=== PATIENT | female | born 1940 | race Caucasian/White ===

== ENCOUNTER 2017-10-30 21:34 | Inpatient (IN) | payer OTHER ==
--- NOTE | 2017-10-30 22:36 | HP ---
CIWA Score - CIWA Score Nausea/Vomitin Muscle Tremors: 2 Anxiety: 3 Agitation: 3 Paroxysmal Sweats: No Perspiration Orientation: 1-Uncertain about Date Tacttile Disturbances: 0-None Auditory Disturbances: 0-None Visual Disturbances: 1-Very Mild Sensitivity Headache: 0-None Present CIWA-Ar Total Score: 12 Admission ROS BHS - HPI Chief Complaint: alcohol withdrawal sx Allergies/Adverse Reactions: Allergies Allergy/AdvReac Type Severity Reaction Status Date / Time Penicillins Allergy Severe Hives Verified 10/30/17 22:00 History of Present Illness: Patient is a 77 female with hx of alcohol dependence presents today for detox. Patient s/p fall fall today, reports she fell down the steps of her home without loosing level of consciousness, was evaluate at [facility]. PMHX: HTN, [place], hypercholesterolemia, anxiety, depression. Denies suicidal / homicidal ideation or suicide attempts. Reports prior detox May 2017 at [facility]. Longest period of sobriety 5 months. Exam Limitations: No Limitations - Ebola screening Have you traveled outside of the country in the last 21 days: No (N) Have you had contact with anyone from an Ebola affected area: No Do you have a fever: No - Review of Systems Constitutional: Chills, Loss of Appetite, Weakness, Unintentional Wgt. Loss (5 lbs) EENT: reports: Hearing Loss ([place] b/t) Respiratory: reports: SOB with Exertion (going up steps) Cardiac: reports: No Symptoms Reported GI: reports: Nausea, Poor Fluid Intake : reports: No Symptoms Reported Musculoskeletal: reports: Joint Pain (related to recent fall), Muscle Pain Neuro: reports: Tremors Endocrine: reports: Increased Thirst Hematology: reports: No Symptoms Reported Psychiatric: reports: Orientated x3, Depressed Other Systems: Reviewed and Negative Patient History - Patient Medical History Hx Anemia: No Hx Asthma: No Hx Chronic Obstructive Pulmonary Disease (COPD): No Hx Cancer: No Hx Cardiac Disorders: No Hx Congestive Heart Failure: No Hx Hypertension: Yes Hx Hypercholesterolemia: Yes Hx Pacemaker: No HX Cerebrovascular Accident: No Hx Seizures: No Hx Dementia: No Hx Diabetes: No Hx Gastrointestinal Disorders: No Hx Liver Disease: No Hx Genitourinary Disorders: No Hx Sexually Transmitted Disorders: No Hx Renal Disease (ESRD): No Hx Thyroid Disease: No Hx Human Immunodeficiency Virus (HIV): No Hx Hepatitis C: No Hx Depression: Yes Hx Suicide Attempt: No Hx Bipolar Disorder: No Hx Schizophrenia: No - Patient Surgical History Past Surgical History: No Hx Neurologic Surgery: No Hx Cataract Extraction: No Hx Cardiac Surgery: No Hx Lung Surgery: No Hx Breast Surgery: No Hx Breast Biopsy: No Hx Abdominal Surgery: No Hx Appendectomy: No Hx Cholecystectomy: No Hx Genitourinary Surgery: No Hx Section: No Hx Orthopedic Surgery: No Hx Hysterectomy: No Anesthesia Reaction: No - PPD History Previous Implant?: Yes Documented Results: Positive w/o proof PPD to be Administered?: Yes - Reproductive History Patient is a Female of Child Bearing Age (11 -55 yrs old): No - Smoking Cessation Smoking history: Former smoker Have you smoked in the past 12 months: No Hx Chewing Tobacco Use: No Initiated information on smoking cessation: No - Substance & Tx. History Hx Alcohol Use: Yes Hx Substance Use: Yes Substance Use Type: Alcohol Hx Substance Use Treatment: Yes (May 2017 at [facility]) - Substances Abused Alcohol Route: Oral Frequency: Daily Amount used: beer- 1 six pack Age of first use: 41 Date of Last Use: 10/30/17 Family Disease History - Family Disease History Family Disease History: Other: Father (, lung cancer), Mother (, alcoholism ) Admission Physical Exam S - Vital Signs Vital Signs: Vital Signs - 24 hr 10/30/17 22:18 Temperature 97.7 F Pulse Rate 78 Respiratory 18 Rate Blood Pressure 147/87 - Physical General Appearance: Yes: Disheveled, Alcohol on Breath, Thin, Anxious HEENTM: Yes: EOMI, Normal ENT Inspection, Normocephalic, Normal Voice, JORGE, Pharynx Normal, Tm's normal, Hearing Decreased (bilateral) Respiratory: Yes: Chest Non-Tender, Lungs Clear, Normal Breath Sounds, No Respiratory Distress, No Accessory Muscle Use Neck: Yes: Within Normal Limits Breast: Yes: Breast Exam Deferred Cardiology: Yes: Regular Rhythm, Regular Rate Abdominal: Yes: Normal Bowel Sounds, Non Tender, Flat, Soft Genitourinary: Yes: Within Normal Limits Back: Yes: Normal Inspection Musculoskeletal: Yes: full range of Motion, Gait Steady, Pelvis Stable Extremities: Yes: Normal Capillary Refill, Normal Inspection, Normal Range of Motion, Non-Tender, Erythema (both forearms result of recent fall) Neurological: 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: 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 NML intact, Fully Oriented, Alert, Motor Strength 5/5, Depressed Affect Integumentary: Yes: Normal Color, Warm, Moist Lymphatic: Yes: Within Normal Limits - Diagnostic (1) Alcohol dependence with withdrawal Current Visit: Yes Status: Acute Qualifiers: Complication of substance-induced condition: uncomplicated Qualified Code(s ): F10.230 - Alcohol dependence with withdrawal, uncomplicated (2) Hypertension Current Visit: Yes Status: Chronic Qualifiers: Hypertension type: essential hypertension Qualified Code(s): I10 - Essential (primary) hypertension (3) Fall Current Visit: Yes Status: Acute Qualifiers: Encounter type: subsequent encounter Qualified Code(s): W19.XXXD - Unspecified fall, subsequent encounter (4) Hyperlipidemia Current Visit: Yes Status: Acute Qualifiers: Hyperlipidemia type: unspecified Qualified Code(s): E78.5 - Hyperlipidemia , unspecified (5) Anxious mood Current Visit: Yes Status: Acute (6) [place] (hard of hearing) Current Visit: Yes Status: Chronic Qualifiers: Hearing loss type: unspecified Laterality: bilateral Qualified Code(s): H91.93 - Unspecified hearing loss, bilateral Cleared for Admission BHS - Detox or Rehab [facility] Level of Care: Medically Managed Detox Regimen/Protocol: Librium S Breath Alcohol Content Breath Alcohol Content: 0.079 Urine Pregancy Test - Result Urine Test Results: Negative- NO Line Present Urine Drug Screen - Results Drug Screen Negative: Yes
[2017-10-30] MEDS ORDERED: chlordiazePOXIDE HCL 25 MG CAPSULE PO PRN (22:45)
[2017-10-30] MEDS ORDERED: chlordiazePOXIDE HCL 25 MG CAPSULE PO ONE (22:45)
[2017-10-30] MEDS ORDERED: IBUPROFEN 400 MG TABLET (FP) PO PRN (22:45)
[2017-10-30] MEDS ORDERED: MAG HYDROX/AL HYDROX/SIMETH 30 ML UNIT-DOSE CUP PO PRN (22:45)
[2017-10-30] MEDS ORDERED: MAGNESIUM HYDROX 2400MG/30ML ORAL SUSPENSION 30 ML CUP PO PRN (22:45)
[2017-10-30] MEDS ORDERED: ACETAMINOPHEN 325 MG TABLET (FP) PO PRN (22:45)
[2017-10-30] MEDS ORDERED: MAGNESIUM CITRATE 300 ML BOTTLE PO PRN (22:45)
[2017-10-30] MEDS ORDERED: guaiFENesin/D-METHORPHAN HB 10 ML UNIT-DOSE CUPS PO PRN (22:45)
[2017-10-30] MEDS ORDERED: LOPERAMIDE HCL 2 MG CAPSULE PO PRN (22:45)
[2017-10-30] MEDS ORDERED: P-EPHED 60MG/TRIPROLIDI 2.5MG TABLET PO PRN (22:45)
[2017-10-30] MEDS ORDERED: hydrOXYzine PAMOATE 25 MG CAPSULE (FP) PO PRN (22:45)
[2017-10-30] MEDS ORDERED: MENTHOL/PHENOL 1 EACH UD MM PRN (22:45)
[2017-10-31] MEDS: chlordiazePOXIDE HCL 25 MG CAPSULE PO SCH ×5 (00:36→22:10)
[2017-10-31 09:54] LABS: HEMATOCRIT 34.6 % (32.4-45.2); HEMOGLOBIN 11.6 GM/dL (10.7-15.3); MCH 31.2 pg (25.7-33.7); MCHC 33.6 g/dl (32.0-36.0); MEAN CELL VOLUME 92.8 fl (80-96); MEAN PLT VOLUME 8.1 fl (7.5-11.1); PLATELET COUNT 210 K/MM3 (134-434); RBC 3.72 M/mm3 (3.60-5.2); RDW 14.1 % (11.6-15.6); WHITE BLOOD COUNT 4.8 K/mm3 (4.0-10.0)
[2017-10-31] MEDS: PRENATAL VITAMINS W/ FOLIC ACID TABLET (FP) PO SCH (10:29)
[2017-10-31] MEDS: amLODIPine BESYLATE 5 MG TABLET (FP) PO SCH (10:29)
[2017-10-31 10:49] LABS: ALBUMIN 3.7 g/dl (3.4-5.0); ANION GAP 5 (8-16); BILIRUBIN,TOTAL 0.5 mg/dL (0.2-1.0); BLOOD UREA NITROGEN 7 mg/dL (7-18); CALCIUM 8.7 mg/dL (8.5-10.1); CHLORIDE 104 mmol/L (98-107); CO2 28 mmol/L (21-32); CREATININE 0.7 mg/dL (0.55-1.02); GLUCOSE,RANDOM 78 mg/dL (74-106); POTASSIUM 4.2 mmol/L (3.5-5.1); SGOT/AST 22 U/L (15-37); SGPT/ALT 20 U/L (12-78); SODIUM 137 mmol/L (136-145); TOT PROT 6.7 g/dl (6.4-8.2)
[2017-10-31 10:50] LABS: ALK PHOS 52 U/L (45-117)
--- NOTE | 2017-10-31 11:44 | PN ---
S CIWA - CIWA Score Nausea/Vomitin Muscle Tremors: 3 Anxiety: 3 Agitation: 2 Paroxysmal Sweats: 1-Minimal Palms Moist Orientation: 0-Oriented Tacttile Disturbances: 1-Very Mild Itch/Numbness Auditory Disturbances: 1-Very Mild Visual Disturbances: 0-None Headache: 2-Mild CIWA-Ar Total Score: 16 BHS Progress Note (SOAP) Subjective: ALERT,IRRITABLE,ANXIOUS,INTERRUPTED SLEEP,TREMOR Objective: 10/31/17 11:41 Vital Signs Temperature 97.3 F L 10/31/17 10:15 Pulse Rate 87 10/31/17 10:15 Respiratory Rate 18 10/31/17 10:15 Blood Pressure 122/67 10/31/17 10:15 O2 Sat by Pulse Oximetry (%) EKG NORMAL ECG PROLONG QT 434/468 NO CHEST PAIN,NO SOB,NO DIZZINESS Laboratory Last Values WBC 4.8 K/mm3 (4.0-10.0) 10/31/17 07:30 RBC 3.72 M/mm3 (3.60-5.2) 10/31/17 07:30 Hgb 11.6 GM/dL (10.7-15.3) 10/31/17 07:30 Hct 34.6 % (32.4-45.2) 10/31/17 07:30 MCV 92.8 fl (80-96) 10/31/17 07:30 MCH 31.2 pg (25.7-33.7) 10/31/17 07:30 MCHC 33.6 g/dl (32.0-36.0) 10/31/17 07:30 RDW 14.1 % (11.6-15.6) 10/31/17 07:30 Plt Count 210 K/MM3 (134-434) 10/31/17 07:30 MPV 8.1 fl (7.5-11.1) 10/31/17 07:30 Sodium 137 mmol/L (136-145) 10/31/17 07:30 Potassium 4.2 mmol/L (3.5-5.1) 10/31/17 07:30 Chloride 104 mmol/L (98-107) 10/31/17 07:30 Carbon Dioxide 28 mmol/L (21-32) 10/31/17 07:30 Anion Gap 5 (8-16) L 10/31/17 07:30 BUN 7 mg/dL (7-18) 10/31/17 07:30 Creatinine 0.7 mg/dL (0.55-1.02) 10/31/17 07:30 Creat Clearance w eGFR > 60 (>60) 10/31/17 07:30 Random Glucose 78 mg/dL (74-106) 10/31/17 07:30 Calcium 8.7 mg/dL (8.5-10.1) 10/31/17 07:30 Total Bilirubin 0.5 mg/dL (0.2-1.0) 10/31/17 07:30 AST 22 U/L (15-37) 10/31/17 07:30 ALT 20 U/L (12-78) 10/31/17 07:30 Alkaline Phosphatase 52 U/L (45-117) 10/31/17 07:30 Total Protein 6.7 g/dl (6.4-8.2) 10/31/17 07:30 Albumin 3.7 g/dl (3.4-5.0) 10/31/17 07:30 10/31/17 11:43 RPR PENDING Assessment: 10/31/17 11:43 WITHDRAWAL SYMPTOM Plan: CONTINUE DETOX,FALL PRECAUTION
--- NOTE | 2017-10-31 12:40 | CONSULT ---
[facility] Psychiatric Consult - Data Date of interview: 10/31/17 Admission source: [facility] Identifying data: Patient is a 77 year old female, mother of three, receiving SSI, and resides in a two bedroom apartment. This is patient's first admission to detox at [facility]. Patient admitted to for alcohol dependence. Substance Abuse History: Following information confirmed with Ms. Bello: Smoking Cessation. Smoking history: Former smoker. Have you smoked in the past 12 months: No. Hx Chewing Tobacco Use: No. Initiated information on smoking cessation: No. - Substance & Tx. History. Hx Alcohol Use: Yes. Hx Substance Use: Yes. Substance Use Type: Alcohol. Hx [facility] - Substances Abused. Alcohol. Route: Oral. Frequency: Daily. Amount used: beer- 1 six pack. Age of first use: 41. Date of Last Use: 10/30/17 Medical History: hypertension, hypercholesterolemia Psychiatric History: Patient denies h/o psychiatric hospitalizations, outpatient care and suicide attempts. Pt. reports taking lexapro 10mg for several years. States the lexapro is prescribed by her PCP and is effective in managing her anxiety. Pharmacy claims reviewed. Physical/Sexual Abuse/Trauma History: Denies. Mental Status Exam - Mental Status Exam Alert and Oriented to: Time, Place, Person Cognitive Function: Fair Patient Appearance: Well Groomed Mood: Hopeful Affect: Mood Congruent Patient Behavior: Appropriate, Cooperative Speech Pattern: Clear, Appropriate Voice Loudness: Normal Thought Process: Intact, Goal Oriented Thought Disorder: Not Present Hallucinations: Denies Suicidal Ideation: Denies Homicidal Ideation: Denies Insight/Judgement: Poor Sleep: Fair Appetite: Fair Muscle strength/Tone: Normal Gait/Station: Normal Psychiatric Findings - Problem List ([place] 1, 2,3) (1) Alcohol dependence with withdrawal Current Visit: Yes Status: Acute Qualifiers: Complication of substance-induced condition: uncomplicated Qualified Code(s ): F10.230 - Alcohol dependence with withdrawal, uncomplicated (2) Anxiety disorder Current Visit: Yes Status: Suspected - Initial Treatment Plan Initial Treatment Plan: Psychoeducation provided. Detoxification in progress. Lexapro 10mg PO daily ordered.
[2017-10-31] MEDS: THIAMINE HCL 100 MG TABLET (FP) PO SCH (22:10)
[2017-10-31] MEDS: ROSUVASTATIN CA 10 MG TABLET (FP) PO SCH (22:10)
[2017-11-01] MEDS: chlordiazePOXIDE HCL 25 MG CAPSULE PO SCH ×3 (05:30→17:30)
--- NOTE | 2017-11-01 09:40 | PN ---
S CIWA - CIWA Score Nausea/Vomitin Muscle Tremors: 3 Anxiety: 1-Mildly Anxious Agitation: 1-Slight > Activity Paroxysmal Sweats: 3 Orientation: 0-Oriented Tacttile Disturbances: 1-Very Mild Itch/Numbness Auditory Disturbances: 0-None Visual Disturbances: 0-None Headache: 1-Very Mild CIWA-Ar Total Score: 12 S Progress Note (SOAP) Subjective: Irritable, anxious, sleep interruption Objective: 11/01/17 09:39 Vital Signs - 8 hr 11/01/17 11/01/17 11/01/17 03:30 06:09 06:30 Temperature 97.2 F L Pulse Rate 60 Respiratory 18 16 16 Rate Blood Pressure 100/53 Laboratory Last Values WBC 4.8 K/mm3 (4.0-10.0) 10/31/17 07:30 RBC 3.72 M/mm3 (3.60-5.2) 10/31/17 07:30 Hgb 11.6 GM/dL (10.7-15.3) 10/31/17 07:30 Hct 34.6 % (32.4-45.2) 10/31/17 07:30 MCV 92.8 fl (80-96) 10/31/17 07:30 MCH 31.2 pg (25.7-33.7) 10/31/17 07:30 MCHC 33.6 g/dl (32.0-36.0) 10/31/17 07:30 RDW 14.1 % (11.6-15.6) 10/31/17 07:30 Plt Count 210 K/MM3 (134-434) 10/31/17 07:30 MPV 8.1 fl (7.5-11.1) 10/31/17 07:30 Sodium 137 mmol/L (136-145) 10/31/17 07:30 Potassium 4.2 mmol/L (3.5-5.1) 10/31/17 07:30 Chloride 104 mmol/L (98-107) 10/31/17 07:30 Carbon Dioxide 28 mmol/L (21-32) 10/31/17 07:30 Anion Gap 5 (8-16) L 10/31/17 07:30 BUN 7 mg/dL (7-18) 10/31/17 07:30 Creatinine 0.7 mg/dL (0.55-1.02) 10/31/17 07:30 Creat Clearance w eGFR > 60 (>60) 10/31/17 07:30 Random Glucose 78 mg/dL (74-106) 10/31/17 07:30 Calcium 8.7 mg/dL (8.5-10.1) 10/31/17 07:30 Total Bilirubin 0.5 mg/dL (0.2-1.0) 10/31/17 07:30 AST 22 U/L (15-37) 10/31/17 07:30 ALT 20 U/L (12-78) 10/31/17 07:30 Alkaline Phosphatase 52 U/L (45-117) 10/31/17 07:30 Total Protein 6.7 g/dl (6.4-8.2) 10/31/17 07:30 Albumin 3.7 g/dl (3.4-5.0) 10/31/17 07:30 RPR Titer Nonreactive (NONREACTIVE) 10/31/17 07:30 Labs noted Assessment: 11/01/17 09:39 Withdrawal sx Plan: Continue detox
[2017-11-01] MEDS: PRENATAL VITAMINS W/ FOLIC ACID TABLET (FP) PO SCH (10:18)
[2017-11-01] MEDS: ESCITALOPRAM OXALATE 10 MG TABLET (FP) PO SCH (10:18)
[2017-11-01] MEDS: amLODIPine BESYLATE 5 MG TABLET (FP) PO SCH (10:18)
[2017-11-01 10:40] LABS: URINE APPEARANCE CLEAR; URINE BILIRUBIN NEGATIVE (<2.0 mg/dL); URINE COLOR LTYELLOW; URINE GLUCOSE (UA) NEGATIVE (NEGATIVE); URINE KETONE NEGATIVE (NEGATIVE); URINE NITRITE NEGATIVE (NEGATIVE); URINE PROTEIN NEGATIVE (NEGATIVE); URINE UROBILINOGEN NEGATIVE mg/dL (0.2-1.0)
[2017-11-01 10:41] LABS: URINE LEUK ESTERASE 2+ (NEGATIVE)
[2017-11-01 10:43] LABS: EPI CELLS RARE /HPF (FEW)
--- NOTE | 2017-11-01 14:40 | EKG ---
Test Reason : Blood Pressure : / mmHG Vent. Rate : 070 BPM Atrial Rate : 070 BPM P-R Int : 176 ms QRS Dur : 090 ms QT Int : 434 ms P-R-T Axes : 065 036 043 degrees QTc Int : 468 ms NORMAL SINUS RHYTHM NORMAL ECG NO PREVIOUS ECGS AVAILABLE Confirmed by MD Santos, Nate ([id number]) on 11/01/2017 2:40:25 PM Referred By: Confirmed By:Nate Graham MD
[2017-11-01] MEDS: chlordiazePOXIDE 5 MG CAPSULE PO SCH (22:05)
[2017-11-01] MEDS: ROSUVASTATIN CA 10 MG TABLET (FP) PO SCH (22:05)
[2017-11-01] MEDS: THIAMINE HCL 100 MG TABLET (FP) PO SCH (22:06)
[2017-11-02] MEDS: chlordiazePOXIDE 5 MG CAPSULE PO SCH ×3 (05:10→18:00)
[2017-11-02] MEDS: ESCITALOPRAM OXALATE 10 MG TABLET (FP) PO SCH (10:10)
[2017-11-02] MEDS: amLODIPine BESYLATE 5 MG TABLET (FP) PO SCH (10:10)
[2017-11-02] MEDS: PRENATAL VITAMINS W/ FOLIC ACID TABLET (FP) PO SCH (10:10)
--- NOTE | 2017-11-02 12:59 | PN ---
BHS Progress Note (SOAP) Subjective: Anxious, sweating Objective: 11/02/17 12:52 Last Vital Signs Temp Pulse Resp BP Pulse Ox 97.7 F 64 16 122/69 11/02/17 09:58 11/02/17 09:58 11/02/17 09:58 11/02/17 09:58 Laboratory Tests 10/31/17 10/31/17 10/31/17 07:30 07:30 07:30 WBC 4.8 RBC 3.72 Hgb 11.6 Hct 34.6 MCV 92.8 MCH 31.2 MCHC 33.6 RDW 14.1 Plt Count 210 MPV 8.1 Sodium 137 Potassium 4.2 Chloride 104 Carbon Dioxide 28 Anion Gap 5 L BUN 7 Creatinine 0.7 Creat Clearance w eGFR > 60 Random Glucose 78 Calcium 8.7 Total Bilirubin 0.5 AST 22 ALT 20 Alkaline Phosphatase 52 Total Protein 6.7 Albumin 3.7 Urine Color Urine Appearance Urine pH Ur Specific [place] Urine Protein Urine Glucose (UA) Urine Ketones Urine Blood Urine Nitrite Urine Bilirubin Urine Urobilinogen Ur Leukocyte Esterase Urine WBC (Auto) Urine RBC (Auto) Ur Epithelial Cells RPR Titer Nonreactive 11/01/17 08:52 WBC RBC Hgb Hct MCV MCH MCHC RDW Plt Count MPV Sodium Potassium Chloride Carbon Dioxide Anion Gap BUN Creatinine Creat Clearance w eGFR Random Glucose Calcium Total Bilirubin AST ALT Alkaline Phosphatase Total Protein Albumin Urine Color Ltyellow Urine Appearance Clear Urine pH 6.0 Ur Specific [place] 1.012 Urine Protein Negative Urine Glucose (UA) Negative Urine Ketones Negative Urine Blood Negative Urine Nitrite Negative Urine Bilirubin Negative Urine Urobilinogen Negative Ur Leukocyte Esterase 2+ H Urine WBC (Auto) 12 Urine RBC (Auto) <1 Ur Epithelial Cells Rare RPR Titer Labs reviewed Assessment: 11/02/17 12:53 Withdrawal symptoms Plan: Continue detox Encouraged PO hydration (water)
[2017-11-02] MEDS: THIAMINE HCL 100 MG TABLET (FP) PO SCH (22:05)
[2017-11-02] MEDS: chlordiazePOXIDE HCL 10 MG CAPSULE PO SCH (22:05)
[2017-11-02] MEDS: ROSUVASTATIN CA 10 MG TABLET (FP) PO SCH (22:05)
[2017-11-03] MEDS: chlordiazePOXIDE HCL 10 MG CAPSULE PO SCH ×2 (05:10→10:09)
--- NOTE | 2017-11-03 07:51 | PN ---
S Progress Note (SOAP) Subjective: ALERT,NO COMPLAINT Objective: 11/03/17 07:50 Vital Signs Temperature 97.3 F L 11/03/17 06:20 Pulse Rate 68 11/03/17 06:20 Respiratory Rate 16 11/03/17 06:30 Blood Pressure 120/64 11/03/17 06:20 O2 Sat by Pulse Oximetry (%) Assessment: 11/03/17 07:50 DETOX COMPLETED,NO WITHDRAWAL SYMPTOM Plan: DISCHARGE TODAY,FOLLOW UP WITH AFTER CARE PROGRAM ARRANGEMENT
--- NOTE | 2017-11-03 07:57 | DS ---
[facility] Detox Discharge Summary Admission Date: 10/30/17 Discharge Date: 11/03/17 - History Present History: Alcohol Dependence Additional Comments: FOLLOW UP WITH AFTER CARE PROGRAM ARRANGEMENT Pertinent Past History: HYPERTENSION HARD OF HEARING [place] HYPERLIPIDEMIA - Physical Exam Results Vital Signs: Vital Signs Temperature 97.3 F L 11/03/17 06:20 Pulse Rate 68 11/03/17 06:20 Respiratory Rate 16 11/03/17 06:30 Blood Pressure 120/64 11/03/17 06:20 O2 Sat by Pulse Oximetry (%) Pertinent Admission Physical Exam Findings: WITHDRAWAL SIGNS AND SYMPTOM Vital Signs Temperature 97.3 F L 11/03/17 06:20 Pulse Rate 68 11/03/17 06:20 Respiratory Rate 16 11/03/17 06:30 Blood Pressure 120/64 11/03/17 06:20 O2 Sat by Pulse Oximetry (%) Laboratory Last Values WBC 4.8 K/mm3 (4.0-10.0) 10/31/17 07:30 RBC 3.72 M/mm3 (3.60-5.2) 10/31/17 07:30 Hgb 11.6 GM/dL (10.7-15.3) 10/31/17 07:30 Hct 34.6 % (32.4-45.2) 10/31/17 07:30 MCV 92.8 fl (80-96) 10/31/17 07:30 MCH 31.2 pg (25.7-33.7) 10/31/17 07:30 MCHC 33.6 g/dl (32.0-36.0) 10/31/17 07:30 RDW 14.1 % (11.6-15.6) 10/31/17 07:30 Plt Count 210 K/MM3 (134-434) 10/31/17 07:30 MPV 8.1 fl (7.5-11.1) 10/31/17 07:30 Sodium 137 mmol/L (136-145) 10/31/17 07:30 Potassium 4.2 mmol/L (3.5-5.1) 10/31/17 07:30 Chloride 104 mmol/L (98-107) 10/31/17 07:30 Carbon Dioxide 28 mmol/L (21-32) 10/31/17 07:30 Anion Gap 5 (8-16) L 10/31/17 07:30 BUN 7 mg/dL (7-18) 10/31/17 07:30 Creatinine 0.7 mg/dL (0.55-1.02) 10/31/17 07:30 Creat Clearance w eGFR > 60 (>60) 10/31/17 07:30 Random Glucose 78 mg/dL (74-106) 10/31/17 07:30 Calcium 8.7 mg/dL (8.5-10.1) 10/31/17 07:30 Total Bilirubin 0.5 mg/dL (0.2-1.0) 10/31/17 07:30 AST 22 U/L (15-37) 10/31/17 07:30 ALT 20 U/L (12-78) 10/31/17 07:30 Alkaline Phosphatase 52 U/L (45-117) 10/31/17 07:30 Total Protein 6.7 g/dl (6.4-8.2) 10/31/17 07:30 Albumin 3.7 g/dl (3.4-5.0) 10/31/17 07:30 Urine Color Ltyellow 11/01/17 08:52 Urine Appearance Clear 11/01/17 08:52 Urine pH 6.0 (5.0-8.0) 11/01/17 08:52 Ur Specific [place] 1.012 (1.001-1.035) 11/01/17 08:52 Urine Protein Negative (NEGATIVE) 11/01/17 08:52 Urine Glucose (UA) Negative (NEGATIVE) 11/01/17 08:52 Urine Ketones Negative (NEGATIVE) 11/01/17 08:52 Urine Blood Negative (NEGATIVE) 11/01/17 08:52 Urine Nitrite Negative (NEGATIVE) 11/01/17 08:52 Urine Bilirubin Negative (<2.0 mg/dL) 11/01/17 08:52 Urine Urobilinogen Negative mg/dL (0.2-1.0) 11/01/17 08:52 Ur Leukocyte Esterase 2+ (NEGATIVE) H 11/01/17 08:52 Urine WBC (Auto) 12 /hpf (3-5) 11/01/17 08:52 Urine RBC (Auto) <1 /hpf (0-3) 11/01/17 08:52 Ur Epithelial Cells Rare /HPF (FEW) 11/01/17 08:52 RPR Titer Nonreactive (NONREACTIVE) 10/31/17 07:30 - Treatment Patient has Accepted a Rehab Referral to: DECLINED - Medication Discharge Medications: Ambulatory Orders Amlodipine Besylate [Amlodipine Besylate] 5 mg PO DAILY 10/30/17 Rosuvastatin Calcium [Rosuvastatin Calcium] 10 mg PO DAILY 10/30/17 Escitalopram Oxalate [Lexapro -] 10 mg PO DAILY 10/31/17 - Diagnosis (1) Alcohol dependence with withdrawal Current Visit: Yes Status: Acute Qualifiers: Complication of substance-induced condition: uncomplicated Qualified Code(s ): F10.230 - Alcohol dependence with withdrawal, uncomplicated (2) Hyperlipidemia Current Visit: Yes Status: Chronic Qualifiers: Hyperlipidemia type: unspecified Qualified Code(s): E78.5 - Hyperlipidemia , unspecified (3) [place] (hard of hearing) Current Visit: Yes Status: Chronic Qualifiers: Hearing loss type: unspecified Laterality: bilateral Qualified Code(s): H91.93 - Unspecified hearing loss, bilateral (4) Hypertension Current Visit: Yes Status: Chronic Qualifiers: Hypertension type: essential hypertension Qualified Code(s): I10 - Essential (primary) hypertension (5) Frequent falls Current Visit: Yes Status: Acute - AMA Did Patient Leave Against Medical Advice: No
--- NOTE | 2017-11-03 08:03 | PN ---
[facility] Progress Note Note: PATIENT HAS ALL MEDICATION AT HOME INCLUDING BABY ASA 81 MGS PO DAILY
[2017-11-03] MEDS: amLODIPine BESYLATE 5 MG TABLET (FP) PO SCH (10:07)
[2017-11-03] MEDS: ASPIRIN COATED 81 MG TABLET.EC PO SCH (10:07)
[2017-11-03] MEDS: ESCITALOPRAM OXALATE 10 MG TABLET (FP) PO SCH (10:07)
[2017-11-03] MEDS: PRENATAL VITAMINS W/ FOLIC ACID TABLET (FP) PO SCH (10:07)
[2017-11-03 12:11] VITALS: BMI 21.8
--- NOTE | 2017-11-03 12:36 | PN ---
S Progress Note Note: patient would like to continue further level of care in rehab
--- NOTE | 2017-11-03 14:22 | HP ---
Psychiatrist Admission - Data Date of interview: 11/03/17 Admission source: [address] [place] [address] Identifying data: This is the first admission to [address] [place] [address] for this 77 years old cacasian female mother of 3 , domiciled,supported by [facility]. Medical History: Hyperlipidemia,HTN. Psychiatric History: patient reports some depression,episodes of frustration at time since she feels bored unoccupied.No previous psychiatric interventions.Patient is wiling to take medications for anxiety,frustration, irritabiity a needed. Physical/Sexual Abuse/Trauma History: denies Vital Signs: Vital Signs - 24 hr 11/02/17 11/02/17 11/03/17 17:47 22:08 00:30 Temperature 97.7 F 98.1 F Pulse Rate 74 75 Respiratory 18 20 18 Rate Blood Pressure 127/69 119/72 11/03/17 11/03/17 11/03/17 03:30 06:20 06:30 Temperature 97.3 F L Pulse Rate 68 Respiratory 16 18 16 Rate Blood Pressure 120/64 11/03/17 11/03/17 11/03/17 10:07 11:44 12:09 Temperature 97.7 F 97.5 F L 97.5 F L Pulse Rate 75 74 74 Respiratory 18 18 18 Rate Blood Pressure 107/63 129/86 129/86 Allergies/Adverse Reactions: Allergies Allergy/AdvReac Type Severity Reaction Status Date / Time Penicillins Allergy Severe Hives Verified 10/30/17 22:00 Date of last physical exam: 10/30/17 Concur with the findings of this exam: Yes - Substance Abuse/Tx History Hx Alcohol Use: Yes (reports drinking since 42 yo,beer about 6 packs daily) Hx Substance Use: No Substance Use Type: Alcohol Hx Substance Use Treatment: Yes (completed inpatient rehab about 4-6 yo,longest abstinece about 3 months) Mental Status Exam - Mental Status Exam Alert and Oriented to: Time, Place, Person Cognitive Function: Grossly Intact Patient Appearance: Well Groomed Mood: Euthymic Affect: Mood Congruent, Labile Patient Behavior: Cooperative Speech Pattern: Clear Voice Loudness: Normal Thought Process: Goal Oriented Thought Disorder: Not Present Hallucinations: Denies Suicidal Ideation: Denies Homicidal Ideation: Denies Insight/Judgement: Fair Sleep: Well Appetite: Good Muscle strength/Tone: Normal Gait/Station: Normal Psychiatric Findings - Problem List ([place] 1, 2,3) (1) Alcohol dependence Current Visit: Yes Status: Chronic (2) Hyperlipidemia Current Visit: Yes Status: Chronic Qualifiers: Hyperlipidemia type: unspecified Qualified Code(s): E78.5 - Hyperlipidemia , unspecified (3) Hypertension Current Visit: Yes Status: Chronic Qualifiers: Hypertension type: essential hypertension Qualified Code(s): I10 - Essential (primary) hypertension - Initial Treatment Plan Initial Treatment Plan: Elavil 25 mg po tid PRN for anxiety.Will monitor progress.
[2017-11-03] MEDS: MELATONIN 5 MG TABLETS PO PRN (21:26)
[2017-11-03] MEDS: THIAMINE HCL 100 MG TABLET (FP) PO SCH (21:27)
[2017-11-03] MEDS: ROSUVASTATIN CA 10 MG TABLET (FP) PO SCH (22:25)
[2017-11-04] MEDS: ESCITALOPRAM OXALATE 10 MG TABLET (FP) PO SCH (09:37)
[2017-11-04] MEDS: amLODIPine BESYLATE 5 MG TABLET (FP) PO SCH (09:37)
[2017-11-04] MEDS: ASPIRIN COATED 81 MG TABLET.EC PO SCH (09:37)
[2017-11-04] MEDS: PRENATAL VITAMINS W/ FOLIC ACID TABLET (FP) PO SCH (09:37)
[2017-11-04] MEDS: THIAMINE HCL 100 MG TABLET (FP) PO SCH (21:31)
[2017-11-04] MEDS: ROSUVASTATIN CA 10 MG TABLET (FP) PO SCH (21:32)
[2017-11-05] MEDS: ESCITALOPRAM OXALATE 10 MG TABLET (FP) PO SCH (10:09)
[2017-11-05] MEDS: ASPIRIN COATED 81 MG TABLET.EC PO SCH (10:09)
[2017-11-05] MEDS: PRENATAL VITAMINS W/ FOLIC ACID TABLET (FP) PO SCH (10:09)
[2017-11-05] MEDS: amLODIPine BESYLATE 5 MG TABLET (FP) PO SCH (10:09)
[2017-11-05] MEDS: THIAMINE HCL 100 MG TABLET (FP) PO SCH (21:24)
[2017-11-05] MEDS: ROSUVASTATIN CA 10 MG TABLET (FP) PO SCH (21:24)
[2017-11-05] MEDS: MELATONIN 5 MG TABLETS PO PRN (21:25)
[2017-11-06] MEDS: amLODIPine BESYLATE 5 MG TABLET (FP) PO SCH (10:19)
[2017-11-06] MEDS: ASPIRIN COATED 81 MG TABLET.EC PO SCH (10:19)
[2017-11-06] MEDS: PRENATAL VITAMINS W/ FOLIC ACID TABLET (FP) PO SCH (10:19)
[2017-11-06] MEDS: ESCITALOPRAM OXALATE 10 MG TABLET (FP) PO SCH (10:19)
[2017-11-06] MEDS ORDERED: PT OWN MED DRAWER 7, Y5N ONE (19:59)
[2017-11-06] MEDS: ROSUVASTATIN CA 10 MG TABLET (FP) PO SCH (21:51)
[2017-11-06] MEDS: THIAMINE HCL 100 MG TABLET (FP) PO SCH (21:51)
[2017-11-07] MEDS: PRENATAL VITAMINS W/ FOLIC ACID TABLET (FP) PO SCH (10:21)
[2017-11-07] MEDS: ASPIRIN COATED 81 MG TABLET.EC PO SCH (10:21)
[2017-11-07] MEDS: amLODIPine BESYLATE 5 MG TABLET (FP) PO SCH (10:21)
[2017-11-07] MEDS: ESCITALOPRAM OXALATE 10 MG TABLET (FP) PO SCH (10:21)
[2017-11-07] MEDS ORDERED: PT OWN MED DRAWER 7, Y5N ONE (19:40)
[2017-11-07] MEDS: THIAMINE HCL 100 MG TABLET (FP) PO SCH (21:38)
[2017-11-07] MEDS: ROSUVASTATIN CA 10 MG TABLET (FP) PO SCH (21:39)
[2017-11-08] MEDS: ASPIRIN COATED 81 MG TABLET.EC PO SCH (10:17)
[2017-11-08] MEDS: PRENATAL VITAMINS W/ FOLIC ACID TABLET (FP) PO SCH (10:17)
[2017-11-08] MEDS: ESCITALOPRAM OXALATE 10 MG TABLET (FP) PO SCH (10:17)
[2017-11-08] MEDS: amLODIPine BESYLATE 5 MG TABLET (FP) PO SCH (10:17)
[2017-11-08] MEDS ORDERED: PT OWN MED DRAWER 7, Y5N ONE (19:46)
[2017-11-08] MEDS: THIAMINE HCL 100 MG TABLET (FP) PO SCH (21:44)
[2017-11-08] MEDS: ROSUVASTATIN CA 10 MG TABLET (FP) PO SCH (21:44)
[2017-11-09] MEDS: ESCITALOPRAM OXALATE 10 MG TABLET (FP) PO SCH (10:13)
[2017-11-09] MEDS: PRENATAL VITAMINS W/ FOLIC ACID TABLET (FP) PO SCH (10:13)
[2017-11-09] MEDS: ASPIRIN COATED 81 MG TABLET.EC PO SCH (10:13)
[2017-11-09] MEDS: amLODIPine BESYLATE 5 MG TABLET (FP) PO SCH (10:14)
[2017-11-09] MEDS: ROSUVASTATIN CA 10 MG TABLET (FP) PO SCH (21:34)
[2017-11-09] MEDS: THIAMINE HCL 100 MG TABLET (FP) PO SCH (21:34)
[2017-11-10] MEDS: PRENATAL VITAMINS W/ FOLIC ACID TABLET (FP) PO SCH (10:14)
[2017-11-10] MEDS: ASPIRIN COATED 81 MG TABLET.EC PO SCH (10:14)
[2017-11-10] MEDS: amLODIPine BESYLATE 5 MG TABLET (FP) PO SCH (10:14)
[2017-11-10] MEDS: ESCITALOPRAM OXALATE 10 MG TABLET (FP) PO SCH (10:15)
[2017-11-10] MEDS: ROSUVASTATIN CA 10 MG TABLET (FP) PO SCH (21:29)
[2017-11-10] MEDS: THIAMINE HCL 100 MG TABLET (FP) PO SCH (21:29)
[2017-11-10] MEDS: MELATONIN 5 MG TABLETS PO PRN (21:30)
[2017-11-11] MEDS: PRENATAL VITAMINS W/ FOLIC ACID TABLET (FP) PO SCH (10:52)
[2017-11-11] MEDS: ESCITALOPRAM OXALATE 10 MG TABLET (FP) PO SCH (10:52)
[2017-11-11] MEDS: ASPIRIN COATED 81 MG TABLET.EC PO SCH (10:52)
[2017-11-11] MEDS: amLODIPine BESYLATE 5 MG TABLET (FP) PO SCH (10:52)
[2017-11-11] MEDS: THIAMINE HCL 100 MG TABLET (FP) PO SCH (21:28)
[2017-11-11] MEDS: MELATONIN 5 MG TABLETS PO PRN (21:28)
[2017-11-11] MEDS: ROSUVASTATIN CA 10 MG TABLET (FP) PO SCH (21:28)
[2017-11-12] MEDS ORDERED: PT OWN MED DRAWER 7, Y5N ONE (08:51)
[2017-11-12] MEDS: ASPIRIN COATED 81 MG TABLET.EC PO SCH (10:06)
[2017-11-12] MEDS: amLODIPine BESYLATE 5 MG TABLET (FP) PO SCH (10:06)
[2017-11-12] MEDS: ESCITALOPRAM OXALATE 10 MG TABLET (FP) PO SCH (10:06)
[2017-11-12] MEDS: PRENATAL VITAMINS W/ FOLIC ACID TABLET (FP) PO SCH (10:06)
--- NOTE | 2017-11-12 15:03 | PN ---
S Progress Note Note: Patient c/o left arm swelling. Vital Signs Temperature 98.1 F 11/12/17 06:55 Pulse Rate 88 11/12/17 09:14 Respiratory Rate 16 11/12/17 06:55 Blood Pressure 121/73 11/12/17 09:14 O2 Sat by Pulse Oximetry (%) Laboratory Tests 10/31/17 10/31/17 10/31/17 07:30 07:30 07:30 WBC 4.8 RBC 3.72 Hgb 11.6 Hct 34.6 MCV 92.8 MCH 31.2 MCHC 33.6 RDW 14.1 Plt Count 210 MPV 8.1 Sodium 137 Potassium 4.2 Chloride 104 Carbon Dioxide 28 Anion Gap 5 L BUN 7 Creatinine 0.7 Creat Clearance w eGFR > 60 Random Glucose 78 Calcium 8.7 Total Bilirubin 0.5 AST 22 ALT 20 Alkaline Phosphatase 52 Total Protein 6.7 Albumin 3.7 Urine Color Urine Appearance Urine pH Ur Specific [place] Urine Protein Urine Glucose (UA) Urine Ketones Urine Blood Urine Nitrite Urine Bilirubin Urine Urobilinogen Ur Leukocyte Esterase Urine WBC (Auto) Urine RBC (Auto) Ur Epithelial Cells RPR Titer Nonreactive 11/01/17 08:52 WBC RBC Hgb Hct MCV MCH MCHC RDW Plt Count MPV Sodium Potassium Chloride Carbon Dioxide Anion Gap BUN Creatinine Creat Clearance w eGFR Random Glucose Calcium Total Bilirubin AST ALT Alkaline Phosphatase Total Protein Albumin Urine Color Ltyellow Urine Appearance Clear Urine pH 6.0 Ur Specific [place] 1.012 Urine Protein Negative Urine Glucose (UA) Negative Urine Ketones Negative Urine Blood Negative Urine Nitrite Negative Urine Bilirubin Negative Urine Urobilinogen Negative Ur Leukocyte Esterase 2+ H Urine WBC (Auto) 12 Urine RBC (Auto) <1 Ur Epithelial Cells Rare RPR Titer Subj: patient c/o left outer arm swelling which has been present before admission to facility due to fall. Patient states denies pain to arm and reduced ROM. Obj: General: alert and oriented x 3. In no acute distress. Skin: intact, warm and dry. Resolving ecchymosis at left forearm area. Ext: mild soft, swelling at left lateral forearm area. No redness. Full ROM of left arm noted. + radial pulse. A/P; Swelling, mild of left arm Arm elevation Ibuprofen as needed continue to monitor clinically
[2017-11-12] MEDS: ROSUVASTATIN CA 10 MG TABLET (FP) PO SCH (21:38)
[2017-11-12] MEDS: THIAMINE HCL 100 MG TABLET (FP) PO SCH (21:38)
[2017-11-13 07:18] VITALS: TEMP 97.8
[2017-11-13 09:41] VITALS: BP 117/75; PULSE 75
[2017-11-13] MEDS: ESCITALOPRAM OXALATE 10 MG TABLET (FP) PO SCH (09:54)
[2017-11-13] MEDS: amLODIPine BESYLATE 5 MG TABLET (FP) PO SCH (09:54)
[2017-11-13] MEDS: PRENATAL VITAMINS W/ FOLIC ACID TABLET (FP) PO SCH (09:54)
[2017-11-13] MEDS: ASPIRIN COATED 81 MG TABLET.EC PO SCH (09:54)
== END 2017-11-13 10:04 | disposition home or self-care (01) | DRG 895 ==
LOC: YASAS 21:34 → Y6N 21:59 → Y3E 11-03 11:12
PROVIDERS: ADMIT Psychiatry & Neurology Psychiatry; ATTEND Psychiatry & Neurology Psychiatry
PROC: HZ2ZZZZ Detoxification Services for Substance Abuse Treatment (ICD-10-PCS; principal; 2017-10-30)
PROC: HZ42ZZZ Group Counseling for Substance Abuse Treatment, Cognitive-Behavioral (ICD-10-PCS; 2017-11-03)
DX: F10.230 Alcohol dependence with withdrawal, uncomplicated (principal); F32.9 Major depressive disorder, single episode, unspecified; F41.9 Anxiety disorder, unspecified; I10 Essential (primary) hypertension; I45.81 Long QT syndrome; E78.5 Hyperlipidemia, unspecified; H91.93 Unspecified hearing loss, bilateral; R29.6 Repeated falls; R76.11 Nonspecific reaction to tuberculin skin test without active tuberculosis; M79.89 Other specified soft tissue disorders; Z88.0 Allergy status to penicillin
CPT/HCPCS: 36415; 80053; 81003; 81015; 85027; 86593; 93005; 93010

== ENCOUNTER 2022-04-12 11:16 | Inpatient (IN) | payer OTHER ==
[2022-04-12 12:14] VITALS: BMI 17.5
[2022-04-12] MEDS ORDERED: ACETAMINOPHEN 325 MG TABLET (FP) PO PRN (13:19)
[2022-04-12] MEDS ORDERED: LORazepam 1 MG TABLET PO PRN (13:19)
[2022-04-12] MEDS ORDERED: IBUPROFEN 400 MG TABLET (FP) PO PRN (13:19)
[2022-04-12] MEDS ORDERED: MAGNESIUM HYDROX 2400MG/30ML ORAL SUSPENSION 30 ML CUP PO PRN (13:19)
[2022-04-12] MEDS ORDERED: ONDANSETRON *ODT* 4 MG TABLET SL PRN (13:19)
[2022-04-12] MEDS ORDERED: IBUPROFEN 600 MG TABLET (FP) PO PRN (13:19)
[2022-04-12] MEDS ORDERED: MAG HYDROX/AL HYDROX/SIMETH 30 ML UNIT-DOSE CUP PO PRN (13:19)
[2022-04-12] MEDS ORDERED: BENZOCAINE/MENTHOL (CHLORASEPTIC ) LOZENGE MM PRN (13:19)
[2022-04-12] MEDS ORDERED: BISMUTH SUBSALICYLATE 262 MG/15 ML BTL PO PRN (13:19)
[2022-04-12] MEDS ORDERED: MAGNESIUM CITRATE 300 ML BOTTLE PO PRN (13:19)
[2022-04-12] MEDS ORDERED: DICYCLOMINE HCL 10 MG CAPSULE PO PRN (13:19)
[2022-04-12] MEDS ORDERED: LOPERAMIDE HCL 2 MG CAPSULE PO PRN (13:19)
[2022-04-12] MEDS ORDERED: NALOXONE HCL (KLOXXADO) 8 MG SPRAY NS PRN (13:19)
[2022-04-12] MEDS: PRENATAL VITAMINS W/ FOLIC ACID TABLET (FP) PO SCH (14:30)
[2022-04-12] MEDS: LORazepam 2 MG TABLET PO SCH ×2 (17:46→22:30)
[2022-04-12] MEDS: MELATONIN 5 MG TABLETS PO SCH (22:30)
[2022-04-12] MEDS: THIAMINE HCL 100 MG TABLET (FP) PO SCH (22:30)
[2022-04-13] MEDS: LORazepam 2 MG TABLET PO SCH ×4 (06:17→23:10)
[2022-04-13 10:13] LABS: HEMATOCRIT 39.1 % (32.4-45.2); HEMOGLOBIN 12.9 GM/dL (10.7-15.3); MCH 32.6 pg (25.7-33.7); MCHC 32.9 g/dl (32.0-36.0); PLATELET COUNT 306 10^3/uL (134-434); RBC 3.95 M/mm3 (3.60-5.2); WHITE BLOOD COUNT 4.2 K/mm3 (4.0-10.0)
[2022-04-13 10:20] LABS: ALBUMIN 3.6 g/dl (3.4-5.0); BLOOD UREA NITROGEN 9.9 mg/dL (7-18)
[2022-04-13 10:23] LABS: CREATININE 0.8 mg/dL (0.55-1.3)
[2022-04-13 10:25] LABS: BILIRUBIN,TOTAL 0.5 mg/dL (0.2-1)
[2022-04-13] MEDS: PRENATAL VITAMINS W/ FOLIC ACID TABLET (FP) PO SCH (10:28)
[2022-04-13] MEDS: LACTULOSE 20 GM/30 ML UDC (FOR ORAL USE ONLY) PO SCH ×2 (13:55→23:10)
[2022-04-13] MEDS: METHOCARBAMOL 500 MG TABLET PO PRN ×2 (18:07→23:18)
[2022-04-13] MEDS: THIAMINE HCL 100 MG TABLET (FP) PO SCH (23:10)
[2022-04-13] MEDS: MELATONIN 5 MG TABLETS PO SCH (23:10)
[2022-04-13] MEDS: hydrOXYzine PAMOATE 25 MG CAPSULE (FP) PO PRN (23:10)
[2022-04-14] MEDS: LORazepam 1 MG TABLET PO SCH ×4 (05:56→22:52)
[2022-04-14] MEDS: LACTULOSE 20 GM/30 ML UDC (FOR ORAL USE ONLY) PO SCH ×3 (05:56→22:52)
[2022-04-14] MEDS: PRENATAL VITAMINS W/ FOLIC ACID TABLET (FP) PO SCH (10:20)
[2022-04-14] MEDS: hydrOXYzine PAMOATE 25 MG CAPSULE (FP) PO PRN ×2 (18:01→22:52)
[2022-04-14] MEDS: METHOCARBAMOL 500 MG TABLET PO PRN (18:02)
[2022-04-14] MEDS: MELATONIN 5 MG TABLETS PO SCH (22:52)
[2022-04-14] MEDS: THIAMINE HCL 100 MG TABLET (FP) PO SCH (22:52)
[2022-04-15] MEDS ORDERED: LORazepam 0.5 MG TABLET PO PRN
[2022-04-15] MEDS: LACTULOSE 20 GM/30 ML UDC (FOR ORAL USE ONLY) PO SCH ×3 (05:43→22:24)
[2022-04-15] MEDS: LORazepam 0.5 MG TABLET PO SCH ×4 (05:43→22:23)
[2022-04-15] MEDS: PRENATAL VITAMINS W/ FOLIC ACID TABLET (FP) PO SCH (10:42)
[2022-04-15] MEDS: amLODIPine BESYLATE 2.5 MG TABLET (FP) PO SCH (12:46)
[2022-04-15] MEDS: METHOCARBAMOL 500 MG TABLET PO PRN (18:05)
[2022-04-15] MEDS: THIAMINE HCL 100 MG TABLET (FP) PO SCH (22:23)
[2022-04-15] MEDS: MELATONIN 5 MG TABLETS PO SCH (22:23)
[2022-04-16] MEDS ORDERED: LORazepam 0.5 MG TABLET PO ONE (05:00)
[2022-04-16] MEDS: LACTULOSE 20 GM/30 ML UDC (FOR ORAL USE ONLY) PO SCH ×3 (05:45→22:13)
[2022-04-16] MEDS: amLODIPine BESYLATE 2.5 MG TABLET (FP) PO SCH (10:04)
[2022-04-16] MEDS: PRENATAL VITAMINS W/ FOLIC ACID TABLET (FP) PO SCH (10:05)
[2022-04-16] MEDS: hydrOXYzine PAMOATE 25 MG CAPSULE (FP) PO PRN (17:57)
[2022-04-16] MEDS: THIAMINE HCL 100 MG TABLET (FP) PO SCH (22:12)
[2022-04-16] MEDS: MELATONIN 5 MG TABLETS PO SCH (22:13)
[2022-04-17] MEDS: LACTULOSE 20 GM/30 ML UDC (FOR ORAL USE ONLY) PO SCH ×3 (05:28→22:29)
[2022-04-17] MEDS: amLODIPine BESYLATE 2.5 MG TABLET (FP) PO SCH (10:24)
[2022-04-17] MEDS: PRENATAL VITAMINS W/ FOLIC ACID TABLET (FP) PO SCH (10:24)
[2022-04-17] MEDS: THIAMINE HCL 100 MG TABLET (FP) PO SCH (22:28)
[2022-04-17] MEDS: MELATONIN 5 MG TABLETS PO SCH (22:28)
[2022-04-17] MEDS: hydrOXYzine PAMOATE 25 MG CAPSULE (FP) PO PRN (22:29)
[2022-04-17] MEDS: METHOCARBAMOL 500 MG TABLET PO PRN (22:29)
[2022-04-18] MEDS: LACTULOSE 20 GM/30 ML UDC (FOR ORAL USE ONLY) PO SCH ×3 (05:45→21:19)
[2022-04-18] MEDS: PRENATAL VITAMINS W/ FOLIC ACID TABLET (FP) PO SCH (10:14)
[2022-04-18] MEDS: amLODIPine BESYLATE 2.5 MG TABLET (FP) PO SCH (10:15)
[2022-04-18] MEDS: MELATONIN 5 MG TABLETS PO SCH (21:19)
[2022-04-18] MEDS: THIAMINE HCL 100 MG TABLET (FP) PO SCH (21:19)
[2022-04-19] MEDS: LACTULOSE 20 GM/30 ML UDC (FOR ORAL USE ONLY) PO SCH ×3 (06:29→21:10)
[2022-04-19] MEDS: PRENATAL VITAMINS W/ FOLIC ACID TABLET (FP) PO SCH (10:47)
[2022-04-19] MEDS: amLODIPine BESYLATE 2.5 MG TABLET (FP) PO SCH (11:29)
[2022-04-19] MEDS: MELATONIN 5 MG TABLETS PO SCH (21:09)
[2022-04-19] MEDS: THIAMINE HCL 100 MG TABLET (FP) PO SCH (21:09)
[2022-04-20] MEDS: LACTULOSE 20 GM/30 ML UDC (FOR ORAL USE ONLY) PO SCH ×3 (06:01→21:58)
[2022-04-20] MEDS: amLODIPine BESYLATE 2.5 MG TABLET (FP) PO SCH (11:08)
[2022-04-20] MEDS: PRENATAL VITAMINS W/ FOLIC ACID TABLET (FP) PO SCH (11:08)
[2022-04-20] MEDS: THIAMINE HCL 100 MG TABLET (FP) PO SCH (21:58)
[2022-04-20] MEDS: MELATONIN 5 MG TABLETS PO SCH (21:58)
[2022-04-21] MEDS: LACTULOSE 20 GM/30 ML UDC (FOR ORAL USE ONLY) PO SCH ×3 (05:57→22:17)
[2022-04-21] MEDS: PRENATAL VITAMINS W/ FOLIC ACID TABLET (FP) PO SCH (10:29)
[2022-04-21] MEDS: amLODIPine BESYLATE 2.5 MG TABLET (FP) PO SCH (10:29)
[2022-04-21] MEDS: THIAMINE HCL 100 MG TABLET (FP) PO SCH (22:17)
[2022-04-21] MEDS: MELATONIN 5 MG TABLETS PO SCH (22:17)
[2022-04-22] MEDS: LACTULOSE 20 GM/30 ML UDC (FOR ORAL USE ONLY) PO SCH ×3 (06:52→21:38)
[2022-04-22] MEDS: PRENATAL VITAMINS W/ FOLIC ACID TABLET (FP) PO SCH (10:01)
[2022-04-22] MEDS: amLODIPine BESYLATE 2.5 MG TABLET (FP) PO SCH (10:03)
[2022-04-22] MEDS: THIAMINE HCL 100 MG TABLET (FP) PO SCH (21:38)
[2022-04-22] MEDS: MELATONIN 5 MG TABLETS PO SCH (21:38)
[2022-04-23] MEDS: LACTULOSE 20 GM/30 ML UDC (FOR ORAL USE ONLY) PO SCH ×3 (06:22→21:12)
[2022-04-23] MEDS: PRENATAL VITAMINS W/ FOLIC ACID TABLET (FP) PO SCH (10:44)
[2022-04-23] MEDS: amLODIPine BESYLATE 2.5 MG TABLET (FP) PO SCH (12:12)
[2022-04-23] MEDS: MELATONIN 5 MG TABLETS PO SCH (21:12)
[2022-04-23] MEDS: THIAMINE HCL 100 MG TABLET (FP) PO SCH (21:12)
[2022-04-24] MEDS: LACTULOSE 20 GM/30 ML UDC (FOR ORAL USE ONLY) PO SCH ×3 (06:39→21:12)
[2022-04-24] MEDS: PRENATAL VITAMINS W/ FOLIC ACID TABLET (FP) PO SCH (10:57)
[2022-04-24] MEDS: amLODIPine BESYLATE 2.5 MG TABLET (FP) PO SCH (10:58)
[2022-04-24] MEDS: ACETAMINOPHEN 325 MG TABLET (FP) PO PRN (19:36)
[2022-04-24] MEDS: MELATONIN 5 MG TABLETS PO SCH (21:12)
[2022-04-24] MEDS: THIAMINE HCL 100 MG TABLET (FP) PO SCH (21:12)
[2022-04-25] MEDS: LACTULOSE 20 GM/30 ML UDC (FOR ORAL USE ONLY) PO SCH ×3 (06:27→21:08)
[2022-04-25] MEDS: amLODIPine BESYLATE 2.5 MG TABLET (FP) PO SCH (09:48)
[2022-04-25] MEDS: PRENATAL VITAMINS W/ FOLIC ACID TABLET (FP) PO SCH (09:48)
[2022-04-25] MEDS: THIAMINE HCL 100 MG TABLET (FP) PO SCH (21:08)
[2022-04-25] MEDS: MELATONIN 5 MG TABLETS PO SCH (21:08)
[2022-04-26] MEDS: LACTULOSE 20 GM/30 ML UDC (FOR ORAL USE ONLY) PO SCH (06:11)
[2022-04-26] MEDS: PRENATAL VITAMINS W/ FOLIC ACID TABLET (FP) PO SCH (10:49)
[2022-04-26] MEDS: amLODIPine BESYLATE 2.5 MG TABLET (FP) PO SCH (10:49)
[2022-04-26] MEDS: CARBAMIDE PEROXIDE 6.5% OTIC 15 ML BOTTLE AU SCH ×2 (10:50→21:04)
[2022-04-26] MEDS: THIAMINE HCL 100 MG TABLET (FP) PO SCH (21:03)
[2022-04-26] MEDS: MELATONIN 5 MG TABLETS PO SCH (21:03)
[2022-04-27] MEDS: PRENATAL VITAMINS W/ FOLIC ACID TABLET (FP) PO SCH (10:54)
[2022-04-27] MEDS: amLODIPine BESYLATE 2.5 MG TABLET (FP) PO SCH (10:54)
[2022-04-27] MEDS: CARBAMIDE PEROXIDE 6.5% OTIC 15 ML BOTTLE AU SCH ×2 (10:55→21:57)
[2022-04-27] MEDS: ACETAMINOPHEN 325 MG TABLET (FP) PO PRN (13:49)
[2022-04-27] MEDS: THIAMINE HCL 100 MG TABLET (FP) PO SCH (21:55)
[2022-04-27] MEDS: MELATONIN 5 MG TABLETS PO SCH (21:55)
[2022-04-28] MEDS: PRENATAL VITAMINS W/ FOLIC ACID TABLET (FP) PO SCH (10:50)
[2022-04-28] MEDS: amLODIPine BESYLATE 2.5 MG TABLET (FP) PO SCH (10:51)
[2022-04-28] MEDS: CARBAMIDE PEROXIDE 6.5% OTIC 15 ML BOTTLE AU SCH ×2 (10:51→21:37)
[2022-04-28] MEDS: THIAMINE HCL 100 MG TABLET (FP) PO SCH (21:38)
[2022-04-28] MEDS: MELATONIN 5 MG TABLETS PO SCH (21:38)
[2022-04-29] MEDS: PRENATAL VITAMINS W/ FOLIC ACID TABLET (FP) PO SCH (09:53)
[2022-04-29] MEDS: amLODIPine BESYLATE 2.5 MG TABLET (FP) PO SCH (09:53)
[2022-04-29] MEDS: CARBAMIDE PEROXIDE 6.5% OTIC 15 ML BOTTLE AU SCH ×2 (09:54→21:04)
[2022-04-29] MEDS: MELATONIN 5 MG TABLETS PO SCH (21:04)
[2022-04-29] MEDS: THIAMINE HCL 100 MG TABLET (FP) PO SCH (21:04)
[2022-04-30] MEDS: PRENATAL VITAMINS W/ FOLIC ACID TABLET (FP) PO SCH (10:27)
[2022-04-30] MEDS: amLODIPine BESYLATE 2.5 MG TABLET (FP) PO SCH (10:27)
[2022-04-30] MEDS: MELATONIN 5 MG TABLETS PO SCH (21:04)
[2022-04-30] MEDS: THIAMINE HCL 100 MG TABLET (FP) PO SCH (21:04)
[2022-05-01] MEDS: PRENATAL VITAMINS W/ FOLIC ACID TABLET (FP) PO SCH (10:33)
[2022-05-01] MEDS: amLODIPine BESYLATE 2.5 MG TABLET (FP) PO SCH (10:33)
[2022-05-01] MEDS: THIAMINE HCL 100 MG TABLET (FP) PO SCH (21:11)
[2022-05-01] MEDS: MELATONIN 5 MG TABLETS PO SCH (21:11)
[2022-05-02] MEDS: amLODIPine BESYLATE 2.5 MG TABLET (FP) PO SCH (10:10)
[2022-05-02] MEDS: PRENATAL VITAMINS W/ FOLIC ACID TABLET (FP) PO SCH (10:10)
[2022-05-02] MEDS: MELATONIN 5 MG TABLETS PO SCH (21:11)
[2022-05-02] MEDS: THIAMINE HCL 100 MG TABLET (FP) PO SCH (21:11)
[2022-05-03 07:14] VITALS: RESP 18; TEMP 97.3
[2022-05-03] MEDS: PRENATAL VITAMINS W/ FOLIC ACID TABLET (FP) PO SCH (10:09)
[2022-05-03] MEDS: amLODIPine BESYLATE 2.5 MG TABLET (FP) PO SCH (10:09)
[2022-05-03 10:57] VITALS: BP 114/62; PULSE 78
== END 2022-05-03 11:50 | disposition home or self-care (01) | DRG 895 ==
LOC: YASAS 11:16 → Y6N 13:44 → Y5N 04-18 12:02
PROVIDERS: ADMIT Allergy & Immunology; ATTEND Psychiatry & Neurology Pain Medicine
PROC: HZ2ZZZZ Detoxification Services for Substance Abuse Treatment (ICD-10-PCS; 2022-04-12)
PROC: HZ42ZZZ Group Counseling for Substance Abuse Treatment, Cognitive-Behavioral (ICD-10-PCS; principal; 2022-04-18)
DX: F10.20 Alcohol dependence, uncomplicated (principal); F32.A Depression, unspecified; F41.9 Anxiety disorder, unspecified; F03.90 Unspecified dementia, unspecified severity, without behavioral disturbance, psychotic disturbance, mood disturbance, and anxiety; I10 Essential (primary) hypertension; E78.5 Hyperlipidemia, unspecified; R76.11 Nonspecific reaction to tuberculin skin test without active tuberculosis; Z87.891 Personal history of nicotine dependence; Z88.0 Allergy status to penicillin; Z59.00 Homelessness unspecified
CPT/HCPCS: 36415; 80053; 82140; 85027; 86780; 93005; 93010; C9803-CS; U0003; U0005

== ENCOUNTER 2025-02-07 15:26 | Inpatient (IN) | payer OTHER ==
[2025-02-07 16:38] LABS: ABSOLUTE IMMATURE GRANULOCYTES 0.01 x10^3/uL (0.0-0.031); BASOPHILS # 0.03 x10^3/uL (0.01-0.08); EOSINOPHIL % 2.4 % (0.7-5.8); EOSINOPHILS # 0.11 x10^3/uL (0.04-0.36); MCHC 33.4 g/dl (32.2-35.5); MEAN CELL VOLUME 98.3 fl (79.4-94.8); MEAN PLT VOLUME 10.4 fl (9.4-12.3); MONOCYTE # 0.56 x10^3/uL (0.24-0.86); MONOCYTE % 12.0 % (4.7-12.5); RDW 13.6 % (12.5-17.0)
[2025-02-07 16:48] LABS: BG HCT 33.0 % (32.4-45.2); VENOUS BASE EXCESS -3.7 mmol/L (-2-2); VENOUS O2 SATURATION 76.9 % (70-80); VENOUS PCO2 34.1 mmHg (38-52); VENOUS PH 7.397 (7.310-7.410)
[2025-02-07 16:57] LABS: GLUCOSE,RANDOM 62.0 mg/dL (74-106); TOT PROT 6.3 g/dl (6.4-8.2)
[2025-02-07 16:58] LABS: CO2 21.0 mmol/L (21-32)
[2025-02-07] MEDS: SODIUM CHLORIDE 0.9% 500 ML INFUS.BAG IV ONE (16:58)
[2025-02-07 17:00] LABS: ALK PHOS 44.0 U/L (40-150)
[2025-02-07 17:02] LABS: SGPT/ALT 26.0 U/L (0-55)
[2025-02-07 17:03] LABS: CREATININE 0.71 mg/dL (0.55-1.3); SGOT/AST 50.0 U/L (5-34)
[2025-02-07 18:56] LABS: INR 1.0 (0.83-1.09); PROTHROMBIN TIME (PATIENT) 10.9 SEC (9.7-13.0)
[2025-02-07] MEDS ORDERED: NICARDIPINE 25 MG in DEXTROSE 5%-WATER - 240 ML IVPB SCH (19:15)
[2025-02-07 19:53] LABS: URINE APPEARANCE CLEAR; URINE BILIRUBIN NEGATIVE (NEGATIVE); URINE COLOR YELLOW; URINE GLUCOSE (UA) NEGATIVE (NEGATIVE); URINE KETONE NEGATIVE (NEGATIVE); URINE LEUK ESTERASE NEGATIVE (NEGATIVE); URINE NITRITE NEGATIVE (NEGATIVE); URINE PROTEIN NEGATIVE (NEGATIVE); URINE UROBILINOGEN 0.2 mg/dL (0.2-1.0)
[2025-02-07 22:00] LABS: URINE AMPHETAMINES NEGATIVE (NEGATIVE); URINE BARBITURATES NEGATIVE (NEGATIVE); URINE BENZODIAZEPINES NEGATIVE (NEGATIVE)
[2025-02-07 22:01] LABS: COCAINE, UR NEGATIVE (NEGATIVE); METHADONE, UR NEGATIVE (NEGATIVE); OPIATES, URI NEGATIVE (NEGATIVE); PHENCYCLIDINE,URINE NEGATIVE (NEGATIVE)
[2025-02-08 00:15] VITALS: BMI 14.8
[2025-02-08] MEDS: MUPIROCIN 2% TOPICAL OINTMENT FOR DECOLONIZATION NS SCH ×3 (00:42→09:08)
[2025-02-08] MEDS: CHLORHEXIDINE GLUCONATE 4% CLEANSER FOR DECOLONIZATION TP SCH ×2 (00:42→21:38)
[2025-02-08] MEDS: levETIRAcetam 500 MG/5 ML INJECTION VIAL IVPB SCH (09:07)
[2025-02-08 09:14] LABS: MCHC 33.6 g/dl (32.2-35.5); MEAN CELL VOLUME 95.3 fl (79.4-94.8); MEAN PLT VOLUME 10.1 fl (9.4-12.3); RDW 13.3 % (12.5-17.0)
[2025-02-08 09:42] LABS: GLUCOSE,RANDOM 93.0 mg/dL (74-106); TOT PROT 6.5 g/dl (6.4-8.2)
[2025-02-08 09:43] LABS: CO2 25.0 mmol/L (21-32)
[2025-02-08 09:47] LABS: SGOT/AST 31.0 U/L (5-34); SGPT/ALT 28.0 U/L (0-55)
[2025-02-08 09:48] LABS: CREATININE 0.59 mg/dL (0.55-1.3)
[2025-02-08 11:23] LABS: ALK PHOS 55.0 U/L (40-150)
[2025-02-08 21:10] LABS: GLUCOSE,RANDOM 115.0 mg/dL (74-106)
[2025-02-08 21:12] LABS: CO2 24.0 mmol/L (21-32)
[2025-02-08 21:16] LABS: CREATININE 0.59 mg/dL (0.55-1.3)
[2025-02-08] MEDS: ATORVASTATIN CA 40 MG TABLET (FP) PO SCH (21:33)
[2025-02-08] MEDS: THIAMINE HCL 200 MG/2 ML VIAL IVPB SCH (21:33)
[2025-02-08] MEDS ORDERED: CHLORHEXIDINE GLUCONATE 4% CLEANSER FOR DECOLONIZATION TP SCH (22:00)
[2025-02-09 06:41] LABS: ABSOLUTE IMMATURE GRANULOCYTES 0.01 x10^3/uL (0.0-0.031); BASOPHILS # 0.03 x10^3/uL (0.01-0.08); EOSINOPHIL % 1.6 % (0.7-5.8); EOSINOPHILS # 0.09 x10^3/uL (0.04-0.36); MCHC 33.7 g/dl (32.2-35.5); MEAN CELL VOLUME 95.3 fl (79.4-94.8); MEAN PLT VOLUME 10.7 fl (9.4-12.3); MONOCYTE # 0.67 x10^3/uL (0.24-0.86); MONOCYTE % 12.2 % (4.7-12.5); RDW 13.4 % (12.5-17.0)
[2025-02-09 07:26] LABS: GLUCOSE,RANDOM 85.0 mg/dL (74-106); TOT PROT 6.0 g/dl (6.4-8.2)
[2025-02-09 07:27] LABS: CO2 26.0 mmol/L (21-32)
[2025-02-09 07:29] LABS: ALK PHOS 50.0 U/L (40-150)
[2025-02-09 07:31] LABS: CREATININE 0.69 mg/dL (0.55-1.3); SGOT/AST 27.0 U/L (5-34)
[2025-02-09 08:14] LABS: SGPT/ALT 22.0 U/L (0-55)
[2025-02-09] MEDS ORDERED: THIAMINE 100 MG TABLET PO SCH (10:00)
[2025-02-09] MEDS: FOLIC ACID 1 MG TABLET (FP) PO SCH (10:28)
[2025-02-09] MEDS: CHOLECALCIFEROL (VIT D3) 1,000 UNIT (25 MCG) TABLET PO SCH (10:28)
[2025-02-09] MEDS: THIAMINE HCL 200 MG/2 ML VIAL IVPB SCH (17:59)
[2025-02-10 02:09] LABS: N-TERMINAL BNP 2372.9 pg/mL (0-299.9)
[2025-02-10 06:40] LABS: MCHC 33.9 g/dl (32.2-35.5); MEAN CELL VOLUME 95.8 fl (79.4-94.8); MEAN PLT VOLUME 10.3 fl (9.4-12.3); RDW 13.4 % (12.5-17.0)
[2025-02-10 06:41] LABS: INR 0.96 (0.83-1.09); PROTHROMBIN TIME (PATIENT) 10.5 SEC (9.7-13.0)
[2025-02-10 06:43] LABS: ACTIVATED PTT 26.4 SECONDS (25.2-36.5)
[2025-02-10 07:22] LABS: GLUCOSE,RANDOM 92.0 mg/dL (74-106); TOT PROT 5.5 g/dl (6.4-8.2)
[2025-02-10 07:23] LABS: CO2 28.0 mmol/L (21-32)
[2025-02-10 07:25] LABS: ALK PHOS 47.0 U/L (40-150)
[2025-02-10 07:27] LABS: SGPT/ALT 18.0 U/L (0-55)
[2025-02-10 07:28] LABS: CREATININE 0.73 mg/dL (0.55-1.3); SGOT/AST 22.0 U/L (5-34)
[2025-02-10] MEDS ORDERED: INSULIN REGULAR HUMAN 100 UNITS/ML *VIAL ONE (09:26)
[2025-02-10] MEDS: levETIRAcetam 500 MG/5 ML INJECTION VIAL IVPB SCH (21:37)
[2025-02-10] MEDS: THIAMINE HCL 200 MG/2 ML VIAL IVPB SCH (21:37)
[2025-02-10] MEDS: ATORVASTATIN CA 40 MG TABLET (FP) PO SCH (21:37)
[2025-02-11 06:58] LABS: ABSOLUTE IMMATURE GRANULOCYTES 0.01 x10^3/uL (0.0-0.031); BASOPHILS # 0.03 x10^3/uL (0.01-0.08); EOSINOPHIL % 3.7 % (0.7-5.8); EOSINOPHILS # 0.15 x10^3/uL (0.04-0.36); MCHC 33.5 g/dl (32.2-35.5); MEAN CELL VOLUME 97.2 fl (79.4-94.8); MEAN PLT VOLUME 10.4 fl (9.4-12.3); MONOCYTE # 0.57 x10^3/uL (0.24-0.86); MONOCYTE % 14.1 % (4.7-12.5); RDW 13.4 % (12.5-17.0)
[2025-02-11 07:03] LABS: GLUCOSE,RANDOM 86.0 mg/dL (74-106)
[2025-02-11 07:05] LABS: CO2 28.0 mmol/L (21-32)
[2025-02-11 07:09] LABS: CREATININE 0.69 mg/dL (0.55-1.3)
[2025-02-11] MEDS: FOLIC ACID 1 MG TABLET (FP) PO SCH (09:36)
[2025-02-11] MEDS: CHOLECALCIFEROL (VIT D3) 1,000 UNIT (25 MCG) TABLET PO SCH (09:36)
[2025-02-12 09:17] LABS: GLUCOSE,RANDOM 86.0 mg/dL (74-106); TOT PROT 6.1 g/dl (6.4-8.2)
[2025-02-12 09:18] LABS: CO2 27.0 mmol/L (21-32)
[2025-02-12 09:23] LABS: SGOT/AST 27.0 U/L (5-34); SGPT/ALT 20.0 U/L (0-55)
[2025-02-12 09:28] LABS: ALK PHOS 59.0 U/L (40-150)
[2025-02-12] MEDS ORDERED: ONDANSETRON 4 MG/2 ML VIAL IVPUSH PRN ×2 (11:44→11:49)
[2025-02-12 13:03] LABS: CREATININE 0.62 mg/dL (0.55-1.3)
[2025-02-12] MEDS: ONDANSETRON 4 MG/2 ML VIAL IVPUSH PRN (14:20)
[2025-02-13] MEDS: LORazepam 2 MG/ML SDV VIAL IVPUSH PRN (00:22)
[2025-02-13 08:11] LABS: ABSOLUTE IMMATURE GRANULOCYTES 0.01 x10^3/uL (0.0-0.031); BASOPHILS # 0.02 x10^3/uL (0.01-0.08); EOSINOPHIL % 1.8 % (0.7-5.8); EOSINOPHILS # 0.08 x10^3/uL (0.04-0.36); MCHC 32.9 g/dl (32.2-35.5); MEAN CELL VOLUME 97.0 fl (79.4-94.8); MEAN PLT VOLUME 11.0 fl (9.4-12.3); MONOCYTE # 0.56 x10^3/uL (0.24-0.86); MONOCYTE % 12.8 % (4.7-12.5); RDW 13.4 % (12.5-17.0)
[2025-02-13 08:53] LABS: GLUCOSE,RANDOM 80.0 mg/dL (74-106)
[2025-02-13 08:54] LABS: CO2 27.0 mmol/L (21-32); TOT PROT 6.1 g/dl (6.4-8.2)
[2025-02-13 08:59] LABS: CREATININE 0.65 mg/dL (0.55-1.3); SGOT/AST 28.0 U/L (5-34); SGPT/ALT 17.0 U/L (0-55)
[2025-02-13 09:23] LABS: ALK PHOS 48.0 U/L (40-150)
[2025-02-15 07:24] LABS: ABSOLUTE IMMATURE GRANULOCYTES 0.01 x10^3/uL (0.0-0.031); BASOPHILS # 0.02 x10^3/uL (0.01-0.08); EOSINOPHIL % 1.2 % (0.7-5.8); EOSINOPHILS # 0.06 x10^3/uL (0.04-0.36); MCHC 34.7 g/dl (32.2-35.5); MEAN CELL VOLUME 95.4 fl (79.4-94.8); MEAN PLT VOLUME 10.3 fl (9.4-12.3); MONOCYTE # 0.57 x10^3/uL (0.24-0.86); MONOCYTE % 11.3 % (4.7-12.5); RDW 13.5 % (12.5-17.0)
[2025-02-15 07:47] LABS: GLUCOSE,RANDOM 99.0 mg/dL (74-106); TOT PROT 6.0 g/dl (6.4-8.2)
[2025-02-15 07:48] LABS: CO2 28.0 mmol/L (21-32)
[2025-02-15 07:50] LABS: ALK PHOS 48.0 U/L (40-150)
[2025-02-15 07:52] LABS: SGOT/AST 27.0 U/L (5-34); SGPT/ALT 19.0 U/L (0-55)
[2025-02-15 07:53] LABS: CREATININE 0.7 mg/dL (0.55-1.3)
[2025-02-16] MEDS: levETIRAcetam 500 MG TABLET (FP) PO SCH (10:04)
[2025-02-16] MEDS: TRIMETHOBENZAMIDE HCL 200MG/2ML INJ IM ONE (22:31)
[2025-02-16] MEDS: LACTATED RINGERS SOLUTION 1,000 ML/1,000 ML INFUS.BAG IV SCH (22:41)
[2025-02-17 08:42] LABS: ABSOLUTE IMMATURE GRANULOCYTES 0.01 x10^3/uL (0.0-0.031); BASOPHILS # 0.03 x10^3/uL (0.01-0.08); EOSINOPHIL % 0.6 % (0.7-5.8); EOSINOPHILS # 0.03 x10^3/uL (0.04-0.36); MCHC 33.8 g/dl (32.2-35.5); MEAN CELL VOLUME 95.2 fl (79.4-94.8); MEAN PLT VOLUME 10.5 fl (9.4-12.3); MONOCYTE # 0.81 x10^3/uL (0.24-0.86); MONOCYTE % 17.1 % (4.7-12.5); RDW 13.6 % (12.5-17.0)
[2025-02-17 09:46] LABS: GLUCOSE,RANDOM 85.0 mg/dL (74-106)
[2025-02-17 09:47] LABS: TOT PROT 6.0 g/dl (6.4-8.2)
[2025-02-17 09:48] LABS: CO2 28.0 mmol/L (21-32)
[2025-02-17 09:49] LABS: ALK PHOS 54.0 U/L (40-150)
[2025-02-17 09:52] LABS: CREATININE 0.8 mg/dL (0.55-1.3); SGOT/AST 32.0 U/L (5-34); SGPT/ALT 20.0 U/L (0-55)
[2025-02-18] MEDS: TRIMETHOBENZAMIDE HCL 200MG/2ML INJ IM PRN (14:01)
[2025-02-18] MEDS: DEXAMETHASONE SOD PHOSPHATE 10 MG/1 ML VIAL IVPUSH SCH (16:57)
[2025-02-20 08:47] LABS: ABSOLUTE IMMATURE GRANULOCYTES 0.04 x10^3/uL (0.0-0.031); BASOPHILS # 0.00 x10^3/uL (0.01-0.08); EOSINOPHIL % 0.0 % (0.7-5.8); EOSINOPHILS # 0.00 x10^3/uL (0.04-0.36); MCHC 34.3 g/dl (32.2-35.5); MEAN CELL VOLUME 95.0 fl (79.4-94.8); MEAN PLT VOLUME 10.2 fl (9.4-12.3); MONOCYTE # 0.29 x10^3/uL (0.24-0.86); MONOCYTE % 4.3 % (4.7-12.5); RDW 13.6 % (12.5-17.0)
[2025-02-20 09:21] LABS: GLUCOSE,RANDOM 128.0 mg/dL (74-106); TOT PROT 5.9 g/dl (6.4-8.2)
[2025-02-20 09:22] LABS: CO2 26.0 mmol/L (21-32)
[2025-02-20 09:26] LABS: CREATININE 0.71 mg/dL (0.55-1.3); SGOT/AST 32.0 U/L (5-34); SGPT/ALT 22.0 U/L (0-55)
[2025-02-20 10:02] LABS: ALK PHOS 66.0 U/L (40-150)
[2025-02-20] MEDS: LORazepam 2 MG/ML SDV VIAL IVPUSH PRN (12:48)
[2025-02-20] MEDS: ONDANSETRON 4 MG/2 ML VIAL IVPUSH PRN (14:53)
[2025-02-20] MEDS: D5-1/2NS+10 MEQ KCL - 10 MEQ/1,000 ML INFUS.BAG IV SCH (17:00)
[2025-02-21 07:48] LABS: ABSOLUTE IMMATURE GRANULOCYTES 0.01 x10^3/uL (0.0-0.031); BASOPHILS # 0.00 x10^3/uL (0.01-0.08); EOSINOPHIL % 0.0 % (0.7-5.8); EOSINOPHILS # 0.00 x10^3/uL (0.04-0.36); MCHC 33.9 g/dl (32.2-35.5); MEAN CELL VOLUME 96.2 fl (79.4-94.8); MEAN PLT VOLUME 9.9 fl (9.4-12.3); MONOCYTE # 0.74 x10^3/uL (0.24-0.86); MONOCYTE % 12.3 % (4.7-12.5); RDW 14.0 % (12.5-17.0)
[2025-02-21 08:12] LABS: GLUCOSE,RANDOM 93.0 mg/dL (74-106); TOT PROT 5.6 g/dl (6.4-8.2)
[2025-02-21 08:13] LABS: CO2 28.0 mmol/L (21-32)
[2025-02-21 08:15] LABS: ALK PHOS 55.0 U/L (40-150)
[2025-02-21 08:18] LABS: CREATININE 0.69 mg/dL (0.55-1.3); SGOT/AST 34.0 U/L (5-34); SGPT/ALT 26.0 U/L (0-55)
[2025-02-21] MEDS: ONDANSETRON *ODT* 4 MG TABLET SL PRN (16:38)
[2025-02-22 13:49] VITALS: BP 111/58; TEMP 97.3
[2025-02-22 13:52] VITALS: PULSE 78; RESP 16
== END 2025-02-22 19:13 | DRG 85 ==
LOC: JER 15:26 → JICU 22:31 → JER 22:31 → JICU 22:52 → J4S 02-10 17:14
PROVIDERS: ADMIT Internal Medicine Pulmonary Disease; ATTEND Internal Medicine
DX: S06.6X0A Traumatic subarachnoid hemorrhage without loss of consciousness, initial encounter (principal); E43 Unspecified severe protein-calorie malnutrition; G93.6 Cerebral edema; E87.1 Hypo-osmolality and hyponatremia; Z68.1 Body mass index [BMI] 19.9 or less, adult; R64 Cachexia; F03.90 Unspecified dementia, unspecified severity, without behavioral disturbance, psychotic disturbance, mood disturbance, and anxiety; I10 Essential (primary) hypertension; R11.10 Vomiting, unspecified; F10.129 Alcohol abuse with intoxication, unspecified; W19.XXXA Unspecified fall, initial encounter; Y93.9 Activity, unspecified; Y92.89 Other specified places as the place of occurrence of the external cause; Y99.9 Unspecified external cause status
CPT/HCPCS: 36415; 70450-TC; 70486-TC; 71045-TC-FY; 71250-TC; 72125-TC; 74177-TC; 80048; 80053; 80307; 81003; 82570; 82803; 82962; 83690; 83735; 83880; 83930; 83935; 84100; 84300; 84443; 84484; 84550; 85025; 85027; 85610; 85730; 86850; 86900; 86901; 87086; 87637-QW; 90832; 93005; 93010; 93306-TC; 97116-GP; 97162-GP; 99291; J1100; Q0162; Q9967

== ENCOUNTER 2025-04-22 16:54 | Inpatient (IN) | payer OTHER ==
[2025-04-22] MEDS ORDERED: BACITRACIN 0.9 GM PACKET ONE ×2 (18:18→19:13)
[2025-04-22 18:38] LABS: ABSOLUTE IMMATURE GRANULOCYTES 0.02 x10^3/uL (0.0-0.031); BASOPHILS # 0.03 x10^3/uL (0.01-0.08); EOSINOPHIL % 0.3 % (0.7-5.8); EOSINOPHILS # 0.02 x10^3/uL (0.04-0.36); MCHC 32.6 g/dl (32.2-35.5); MEAN CELL VOLUME 99.5 fl (79.4-94.8); MEAN PLT VOLUME 10.1 fl (9.4-12.3); MONOCYTE # 0.90 x10^3/uL (0.24-0.86); MONOCYTE % 13.7 % (4.7-12.5); RDW 12.5 % (12.5-17.0)
[2025-04-22 18:59] LABS: GLUCOSE,RANDOM 108.0 mg/dL (74-106)
[2025-04-22 19:00] LABS: CO2 23.0 mmol/L (21-32); TOT PROT 6.9 g/dl (6.4-8.2)
[2025-04-22 19:02] LABS: ALK PHOS 47.0 U/L (40-150)
[2025-04-22 19:04] LABS: ACTIVATED PTT 29.8 SECONDS (25.2-36.5); INR 1.12 (0.83-1.09); PROTHROMBIN TIME (PATIENT) 12.3 SEC (9.7-13.0)
[2025-04-22 19:05] LABS: CREATININE 0.72 mg/dL (0.55-1.3); SGOT/AST 36.0 U/L (5-34); SGPT/ALT 18.0 U/L (0-55)
[2025-04-22] MEDS ORDERED: ACETAMINOPHEN INJECTION 100 ML ONE (19:14)
[2025-04-22] MEDS: BACITRACIN ZINC 15 GM TUBE TOPICAL OINTMENT TP ONE (19:17)
[2025-04-22] MEDS: ACETAMINOPHEN 1000 MG/100 ML BAG IVPB ONE (19:17)
[2025-04-22] MEDS: SODIUM CHLORIDE 1,000 ML IV STA (19:55)
[2025-04-23 00:33] LABS: GLUCOSE,RANDOM 78.0 mg/dL (74-106)
[2025-04-23 00:34] LABS: CO2 21.0 mmol/L (21-32)
[2025-04-23 00:38] LABS: CREATININE 0.64 mg/dL (0.55-1.3)
[2025-04-23] MEDS ORDERED: ONDANSETRON *ODT* 4 MG TABLET SL PRN (06:26)
[2025-04-23] MEDS ORDERED: NITROGLYCERIN SUBLINGUAL 1/150 0.4 MG TAB SL PRN (06:26)
[2025-04-23 07:58] LABS: ABSOLUTE IMMATURE GRANULOCYTES 0.01 x10^3/uL (0.0-0.031); BASOPHILS # 0.05 x10^3/uL (0.01-0.08); EOSINOPHIL % 1.6 % (0.7-5.8); EOSINOPHILS # 0.10 x10^3/uL (0.04-0.36); MCHC 31.7 g/dl (32.2-35.5); MEAN CELL VOLUME 100.5 fl (79.4-94.8); MEAN PLT VOLUME 11.3 fl (9.4-12.3); MONOCYTE # 0.85 x10^3/uL (0.24-0.86); MONOCYTE % 13.6 % (4.7-12.5); RDW 12.4 % (12.5-17.0)
[2025-04-23 08:22] LABS: GLUCOSE,RANDOM 65.0 mg/dL (74-106)
[2025-04-23 08:23] LABS: TOT PROT 6.9 g/dl (6.4-8.2)
[2025-04-23 08:24] LABS: CO2 23.0 mmol/L (21-32)
[2025-04-23 08:25] LABS: ALK PHOS 50.0 U/L (40-150)
[2025-04-23 08:28] LABS: CREATININE 0.61 mg/dL (0.55-1.3); SGOT/AST 29.0 U/L (5-34); SGPT/ALT 19.0 U/L (0-55)
[2025-04-23] MEDS: FOLIC ACID 1 MG TABLET (FP) PO SCH (09:58)
[2025-04-23] MEDS: MULTIVITAMINS (DAILY MVI) TABLET (FP) PO SCH (09:58)
[2025-04-23] MEDS: THIAMINE 100 MG TABLET PO SCH (09:58)
[2025-04-23] MEDS: PANTOPRAZOLE 40 MG TABLET PO SCH (09:58)
[2025-04-23] MEDS: ENOXAPARIN NA (PORCINE) 40 MG/0.4 ML DISP.SYRIN SQ SCH (09:58)
[2025-04-23] MEDS: CHOLECALCIFEROL (VIT D3) 1,000 UNIT (25 MCG) TABLET PO SCH (09:58)
[2025-04-23] MEDS: levETIRAcetam 500 MG TABLET (FP) PO SCH (09:58)
[2025-04-23] MEDS: VALPROIC ACID 250 MG CAPSULE PO SCH (09:59)
[2025-04-23] MEDS: VITAMIN B COMPLEX W/C COMBO TABLET (FP) PO SCH (09:59)
[2025-04-23] MEDS ORDERED: NALTREXONE HCL 50 MG TABLET PO SCH (10:00)
[2025-04-23] MEDS: ACETAMINOPHEN 325 MG TABLET (FP) PO SCH (14:12)
[2025-04-23] MEDS: LIDOCAINE 5% TOPICAL PATCH TP SCH (14:13)
[2025-04-23 16:07] VITALS: BMI 15.0
[2025-04-23] MEDS: ATORVASTATIN CA 40 MG TABLET (FP) PO SCH (21:39)
[2025-04-23] MEDS: LIDOCAINE PATCH REMOVAL MC SCH (21:40)
[2025-04-24 08:59] VITALS: RESP 15
[2025-04-24 10:04] VITALS: BP 126/86; PULSE 69; TEMP 98.1
== END 2025-04-24 12:26 | DRG 641 ==
LOC: JER 16:54 → JERBED 04-23 00:44 → J4S 04-23 03:15 → OBSVTOIN 04-23 15:38
PROVIDERS: ADMIT Student in an Organized Health Care Education/Training Program; ATTEND Nurse Practitioner
DX: E87.1 Hypo-osmolality and hyponatremia (principal); F03.918 Unspecified dementia, unspecified severity, with other behavioral disturbance; I10 Essential (primary) hypertension; F10.10 Alcohol abuse, uncomplicated; I25.10 Atherosclerotic heart disease of native coronary artery without angina pectoris; R29.6 Repeated falls; W18.30XA Fall on same level, unspecified, initial encounter; Y93.9 Activity, unspecified; Y92.9 Unspecified place or not applicable; Y99.9 Unspecified external cause status; G40.909 Epilepsy, unspecified, not intractable, without status epilepticus
CPT/HCPCS: 36415; 70450-TC; 71045-TC-FY; 72125-TC; 72170-TC-FY; 80048; 80053; 82550; 83735; 84100; 85025; 85610; 85730; 93005; 93010; 99285-25; G0378